=== PATIENT | female | born 1955 | race American Indian/Alaskan Native ===

== ENCOUNTER 2019-05-26 04:25 | Emergency (ER) | payer MEDICARE, MEDICAID ==
[~2019-05-26] VITALS: Ht 170.2 cm; Wt 118.2 kg
[2019-05-26 04:38] VITALS: BP 157/51
[2019-05-26] MEDS ORDERED: DICL50TA8 PO (05:00)
[2019-05-26] MEDS ORDERED: HYDROcodone/acetaminophen 5mg/325mg tablet PO ONE (05:00)
[2019-05-26] MEDS ORDERED: ketorolac trometh inj. 60 MG/2 ML VIAL IM ONE (05:00)
[2019-05-26] MEDS ORDERED: CYCL-1 PO (05:00)
== END 2019-05-26 05:24 | disposition home or self-care (01) ==
LOC: ER 04:28
DX: M54.5 Low back pain (principal); Z79.899 Other long term (current) drug therapy
CPT/HCPCS: 93005; 96372; 99283; J1885

== ENCOUNTER 2019-07-31 17:33 | Emergency (ER) | payer MEDICARE, MEDICAID ==
[~2019-07-31] VITALS: Ht 167.6 cm; Wt 124.0 kg
[~2019-07-31 17:33] MED LIST: CYCL-1 PO; DICL50TA8 PO
--- NOTE | 2019-07-31 18:55 | NUR ---
Spoke to Dr. White regarding patient's symptoms and condition. He requests a level 2 stroke workup including ESR and CRP with a vascular study of the affected side (right). Stroke alert called and orders placed.
--- NOTE | 2019-07-31 19:09 | NUR ---
Patient to CT
[2019-07-31 19:23] LABS: BASOPHILS # (AUTO) 0.1 X10'3 (0-0.2); BASOPHILS % (AUTO) 1.2 % (0-1); EOSINOPHILS # (AUTO) 0.2 X10'3 (0-0.9); EOSINOPHILS % (AUTO) 2.1 % (0-6); HEMOGLOBIN 15.2 g/dl (12.0-16.0); LYMPHOCYTES # (AUTO) 3.4 X10'3 (1.1-4.8); LYMPHOCYTES % (AUTO) 30.1 % (21-51); MEAN CORPUSCULAR HEMOGLOBIN 31.8 PG (27.0-31.0); MEAN CORPUSCULAR HGB CONC 33.7 g/dL (33.0-36.5); MEAN CORPUSCULAR VOLUME 94.2 FL (78-98); MEAN PLATELET VOLUME 8.2 FL (7.4-10.4); MONOCYTES # (AUTO) 0.8 X10'3 (0-0.9); MONOCYTES % (AUTO) 7.4 % (2-12); NEUTROPHILS # (AUTO) 6.7 X10'3 (1.8-7.7); NEUTROPHILS % (AUTO) 59.2 % (42-75); PLATELET COUNT 232 X10'3 (140-440); RED BLOOD COUNT 4.78 X10'6 (4.20-5.60); RED CELL DISTRIBUTION WIDTH 13.2 % (11.5-14.5); WHITE BLOOD COUNT 11.3 X10'3 (4.5-11.0)
[2019-07-31 19:32] LABS: PARTIAL THROMBOPLASTIN TIME 24 SECONDS (22-32)
[2019-07-31 19:43] LABS: ALANINE AMINOTRANSFERASE 49 U/L (12-78); ALBUMIN 4.2 G/DL (3.4-5.0); ALBUMIN/GLOBULIN RATIO 0.9 (1.1-1.5); ALKALINE PHOSPHATASE 115 IU/L (46-116); ANION GAP 9 (8-16); ASPARTATE AMINO TRANSFERASE 20 U/L (10-37); BILIRUBIN,TOTAL 0.8 MG/DL (0.1-1.0); BLOOD UREA NITROGEN 19 MG/DL (7-18); BUN/CREATININE RATIO 25.7 (6.6-38.0); C-REACTIVE PROTEIN 0.11 MG/DL (0.0-0.5); CALCIUM 9.3 MG/DL (8.5-10.1); CHLORIDE 102 MMOL/L (99-107); CREATININE 0.74 MG/DL (0.40-0.90); GLUCOSE 177 MG/DL (70-104); POTASSIUM 4.2 MMOL/L (3.5-5.1); SODIUM 140 MMOL/L (135-145); TOTAL CARBON DIOXIDE 29.2 MMOL/L (24-32); TROPONIN I < 0.04 NG/ML (0.0-0.05); eGFR 79 ML/MIN
[2019-07-31 20:24] VITALS: BP 136/80
[2019-07-31] MEDS ORDERED: normal saline 1000ml 1,000 ML IV ONE (20:25)
[2019-07-31] MEDS ORDERED: iohexol 350MG/ML 100ml bottle IV ONE (20:28)
[2019-07-31] MEDS ORDERED: MESSAGE TO NURSING PO NR (21:00)
== END 2019-07-31 22:21 | disposition home or self-care (01) ==
LOC: ER 17:35
DX: H53.2 Diplopia (principal); H49.21 Sixth [abducent] nerve palsy, right eye; R94.31 Abnormal electrocardiogram [ECG] [EKG]
CPT/HCPCS: 36415; 70450; 70496; 70498; 71045; 80053; 82948; 84484; 85025; 85610; 85651; 85730; 86140; 93005; 93880; 99284; J7030; Q9967